=== PATIENT | female | born 1965 | race Caucasian/White ===

== ENCOUNTER 2016-06-02 11:27 | Outpatient (CLI) ==
--- NOTE | 2016-06-02 12:19 | DI ---
EXAM: Chest two views HISTORY: Acute bronchitis COMPARISON: None TECHNIQUE: Two views of the chest were performed FINDINGS: The lungs are clear, excepting for granulomatous calcification. There is no pleural effu munir or pneumothorax. The heart is normal in size. The mediastinal contour is normal. There are n o acute abnormalities of the bones. IMPRESSION: No acute cardiopulmonary process.
== END 2016-06-02 11:28 | disposition home or self-care (01) ==
LOC: RAD 11:27
PROVIDERS: ATTEND Physician Assistant
DX: J20.9 Acute bronchitis, unspecified (principal)